=== PATIENT | male | born 1975 | race Caucasian/White ===

== ENCOUNTER 2017-03-07 04:16 | Emergency (ER) | payer OTHER ==
[~2017-03-07 04:16] MED LIST: ASTELIN137 MCG INH; AUGMENTIN PO; DICLOFENAC PO; EXCEDRIN MIGRAI1 TA1 PO; FLEXERIL PO; FLEXERIL10 M1 PO; LORTAB 10/500 T1 TAB PO; MEDROL4 MG/DOSE- PO; NAPROSYN500 MG PO; NO MEDICATIONS; SUDAFED PO
== END 2017-03-07 05:17 | disposition home or self-care (01) ==
LOC: SED 04:16
DX: F41.9 Anxiety disorder, unspecified (principal); Z88.5 Allergy status to narcotic agent
CPT/HCPCS: 99283